=== PATIENT | male | born 1955 | race Hispanic/Latino ===

== ENCOUNTER 2017-09-13 07:48 | Day surgery (SDC) | payer MEDICARE, BC ==
[~2017-09-13] VITALS: Ht 175.3 cm; Wt 82.1 kg
[2017-09-13] VITALS (7 sets, daily range): BP systolic 74–95; BP diastolic 35–55
[~2017-09-13 07:48] MED LIST: CALC0.5C11 PO; CINA60TA PO; GABA-531 PO; L.AC1CAP6 PO; NITR0.4T50 SL; PANT20TA PO; PRAS10TA6 PO; RANI-248 PO; ROSU5TAB PO; SERT50TA12 PO; SEVE800T7 PO; SODIUM CHLORIDE 0.9% 1000ML 1,000 ML IV ONE; WARF3TAB59 PO
[2017-09-13] MEDS ORDERED: PROPOFOL 10 MG/ML 20ML VIAL IV ONE (09:57)
== END 2017-09-13 10:45 | disposition home or self-care (01) ==
LOC: ENDO 07:48 → DAH 07:48 → ENDO 10:45
PROVIDERS: ATTEND Internal Medicine
DX: K29.50 Unspecified chronic gastritis without bleeding (principal); K44.9 Diaphragmatic hernia without obstruction or gangrene; I10 Essential (primary) hypertension; I25.10 Atherosclerotic heart disease of native coronary artery without angina pectoris; Z95.1 Presence of aortocoronary bypass graft; Z86.73 Personal history of transient ischemic attack (TIA), and cerebral infarction without residual deficits; F41.9 Anxiety disorder, unspecified; D64.9 Anemia, unspecified; N19 Unspecified kidney failure; Z68.35 Body mass index [BMI] 35.0-35.9, adult; Z98.890 Other specified postprocedural states; Z79.899 Other long term (current) drug therapy; Z79.01 Long term (current) use of anticoagulants
CPT/HCPCS: 36415; 43239; 84132; 88305; 88312; 88342; A4606; J2704; J7030